=== PATIENT | male | born 1995 | race Caucasian/White ===

== ENCOUNTER 2017-04-22 10:50 | Emergency (ER) | payer OTHER ==
[2017-04-22 11:39] LABS: BASOPHIL 0.6 % (0-2); EOSINOPHIL 1.2 % (0-5); HCT 37.9 % (42.0-52.0); HGB 13.5 g/dl (13.2-18.0); LYMPHOCYTE 19.2 % (15-48); MCH 31.3 pg (25.0-31.0); MCHC 35.6 g/dL (32.0-36.0); MCV 87.7 fL (78.0-100.0); MONOCYTE 9.7 % (0-12); MPV 9.7 fL (6.0-9.5); NEUTROPHIL 69.3 % (41-80); PLT 229 K/uL (150-400); RBC 4.32 M/uL (4.70-6.00); RDW 12.6 % (11.5-14.0)
[2017-04-22 11:48] LABS: BILIRUBIN NEGATIVE (NEGATIVE); BLOOD NEGATIVE Ery/uL (NEGATIVE); CLARITY CLEAR (CLEAR); COLOR YELLOW (YELLOW); GLUCOSE (U) NORMAL (NORMAL); KETONE (U) NEGATIVE (NEGATIVE); LEUKOCYTES NEGATIVE Leu/uL (NEGATIVE); NITRITE NEGATIVE (NEGATIVE); PROTEIN NEGATIVE (NEGATIVE); SPECIFIC GRAVITY 1.025 (1.001-1.030); UROBILINOGEN 0.2 mg/dL (0.2-1.0)
[2017-04-22 12:00] LABS: ALBUMIN 4.5 g/dL (3.5-5.0); BILIRUBIN - TOTAL 0.9 mg/dL (0.1-1.0); CREATININE 0.8 mg/dL (0.7-1.2); GLOBULIN (CALCULATION) 2.8 g/dL (2.2-4.2); POTASSIUM 3.9 mmol/L (3.5-5.1); TOTAL PROTEIN 7.3 g/dL (6.4-8.3)
== END 2017-04-22 12:13 | disposition home or self-care (01) ==
LOC: FER 10:50
PROVIDERS: Emergency Medicine
DX: R11.2 Nausea with vomiting, unspecified (principal); R10.817 Generalized abdominal tenderness; F17.200 Nicotine dependence, unspecified, uncomplicated; Z86.59 Personal history of other mental and behavioral disorders
CPT/HCPCS: 36415; 80053; 81003; 82150; 83690; 85025; 99284

== ENCOUNTER 2017-05-05 01:39 | Emergency (ER) | payer OTHER ==
[2017-05-05 02:25] LABS: BASOPHIL 0.6 % (0-2); EOSINOPHIL 0.1 % (0-5); HCT 41.8 % (42.0-52.0); HGB 15.3 g/dl (13.2-18.0); LYMPHOCYTE 19.4 % (15-48); MCHC 36.6 g/dL (32.0-36.0); MCV 84.8 fL (78.0-100.0); MONOCYTE 5.1 % (0-12); NEUTROPHIL 74.8 % (41-80); PLT 291 K/uL (150-400); RBC 4.93 M/uL (4.70-6.00); RDW 12.6 % (11.5-14.0); WBC 8.6 K/uL (4.0-10.5)
[2017-05-05 02:33] LABS: ALBUMIN 4.7 g/dL (3.5-5.0); BILIRUBIN - TOTAL 0.7 mg/dL (0.1-1.0); CREATININE 0.7 mg/dL (0.7-1.2); GLOBULIN (CALCULATION) 3.3 g/dL (2.2-4.2); POTASSIUM 3.9 mmol/L (3.5-5.1)
[2017-05-05 03:22] LABS: BILIRUBIN NEGATIVE (NEGATIVE); BLOOD NEGATIVE Ery/uL (NEGATIVE); CLARITY CLEAR (CLEAR); COLOR YELLOW (YELLOW); GLUCOSE (U) NORMAL (NORMAL); KETONE (U) NEGATIVE (NEGATIVE); LEUKOCYTES NEGATIVE Leu/uL (NEGATIVE); NITRITE NEGATIVE (NEGATIVE); PROTEIN TRACE (LOW) mg/dL (NEGATIVE); UROBILINOGEN 0.2 mg/dL (0.2-1.0); pH 8.5 (5.0-9.0)
[2017-05-05 03:24] LABS: AMORPHOUS URATES CRYSTALS MODERATE
== END 2017-05-05 04:33 | disposition home or self-care (01) ==
LOC: FER 01:39
PROVIDERS: Emergency Medicine
DX: K29.70 Gastritis, unspecified, without bleeding (principal); F19.10 Other psychoactive substance abuse, uncomplicated; F41.0 Panic disorder [episodic paroxysmal anxiety]; K21.9 Gastro-esophageal reflux disease without esophagitis
CPT/HCPCS: 36415; 80053; 81001; 83690; 85025; C9113; J2405

== ENCOUNTER 2017-05-06 10:31 | Emergency (ER) | payer OTHER | END 2017-05-06 12:46 | disposition home or self-care (01) | LOC: FER 10:31 | DX: R10.9 Unspecified abdominal pain (principal); R11.0 Nausea; R19.7 Diarrhea, unspecified | CPT/HCPCS: 99283 ==

== ENCOUNTER 2021-07-06 10:09 | Emergency (ER) | payer OTHER ==
[~2021-07-06 10:09] MED LIST: FLEXERIL10 MG PO; NAPROXEN500 MG PO
[2021-07-21] MEDS ORDERED: BRIN20TA PO (15:16)
[2021-07-21] MEDS ORDERED: REXULTI4 MG PO (15:16)
[2021-07-21] MEDS ORDERED: MINIPRES1 MG PO (15:17)
[2021-07-21] MEDS ORDERED: IBUPROFEN400 MG PO (15:18)
== END 2021-07-06 11:20 | disposition home or self-care (01) ==
LOC: FER 10:09
DX: S09.90XA Unspecified injury of head, initial encounter (principal); K02.9 Dental caries, unspecified; F17.200 Nicotine dependence, unspecified, uncomplicated; Z88.5 Allergy status to narcotic agent; W19.XXXA Unspecified fall, initial encounter; W22.8XXA Striking against or struck by other objects, initial encounter; Y92.69 Other specified industrial and construction area as the place of occurrence of the external cause; Y99.0 Civilian activity done for income or pay
CPT/HCPCS: 99283

== ENCOUNTER 2021-07-12 10:37 | Emergency (ER) | payer OTHER ==
[2021-07-12 12:19] LABS: BASOPHIL 0.7 % (0-2); EOSINOPHIL 0.4 % (0-5); HCT 41.4 % (42.0-52.0); HGB 14.6 g/dl (13.2-18.0); MCH 32.6 pg (25.0-31.0); MCHC 35.3 g/dL (32.0-36.0); MCV 92.4 fL (78.0-100.0); MONOCYTE 8.7 % (0-12); MPV 9.7 fL (6.0-9.5); NEUTROPHIL 78.4 % (41-80); NRBC 0; PLT 273 K/uL (150-400); RBC 4.48 M/uL (4.70-6.00); RDW 12.5 % (11.5-14.0); WBC 12.1 K/uL (4.0-10.5)
[2021-07-12 12:46] LABS: ALBUMIN 4.3 g/dL (3.4-5.0); BILIRUBIN - TOTAL 0.9 mg/dL (0.2-1.0); BUN/CREAT RATIO (CALC) 13.2 RATIO; CREATININE 0.91 mg/dL (0.67-1.17); GLOBULIN (CALCULATION) 3.9 g/dL; POTASSIUM 3.5 mmol/L (3.5-5.1); TOTAL PROTEIN 8.2 g/dL (6.4-8.2)
[2021-07-12] MEDS ORDERED: ONDANSETRON ODT4 MG PO (14:56)
[2021-07-12] MEDS ORDERED: PEPCID AC20 MG PO (14:56)
[2021-07-21] MEDS ORDERED: REXULTI4 MG PO (15:16)
[2021-07-21] MEDS ORDERED: BRIN20TA PO (15:16)
[2021-07-21] MEDS ORDERED: MINIPRES1 MG PO (15:17)
[2021-07-21] MEDS ORDERED: IBUPROFEN400 MG PO (15:18)
== END 2021-07-12 15:02 | disposition home or self-care (01) ==
LOC: FER 10:37
PROVIDERS: Physician Assistant
DX: R11.2 Nausea with vomiting, unspecified (principal); R19.7 Diarrhea, unspecified; F17.210 Nicotine dependence, cigarettes, uncomplicated; Z88.5 Allergy status to narcotic agent
CPT/HCPCS: 36415; 80053; 83690; 85025; 86140; 96372; J2405; J2550; J7030; Q9967

== ENCOUNTER → 2021-07-29 | Day surgery (SDC) | payer OTHER ==
[~2021-07-29] VITALS: Ht 182.9 cm; Wt 86.2 kg
[~2021-07-29] MED LIST changes: +BRIN20TA PO; +IBUPROFEN400 MG PO; +MINIPRES1 MG PO; +ONDANSETRON ODT4 MG PO; +PEPCID AC20 MG PO; +REXULTI4 MG PO
[2021-07-29 09:09] LABS: BASOPHIL 0.6 % (0-2); EOSINOPHIL 3.1 % (0-5); HCT 40.1 % (42.0-52.0); HGB 13.7 g/dl (13.2-18.0); LYMPHOCYTE 20.5 % (15-48); MCH 32.2 pg (25.0-31.0); MCHC 34.2 g/dL (32.0-36.0); MCV 94.1 fL (78.0-100.0); MONOCYTE 9.5 % (0-12); MPV 9.7 fL (6.0-9.5); NRBC 0; PLT 206 K/uL (150-400); RBC 4.26 M/uL (4.70-6.00); RDW 12.6 % (11.5-14.0); WBC 8.8 K/uL (4.0-10.5)
== END | disposition home or self-care (01) ==
LOC: FAS 07:57
PROVIDERS: Oral & Maxillofacial Surgery
DX: K02.9 Dental caries, unspecified (principal); K04.7 Periapical abscess without sinus; F20.9 Schizophrenia, unspecified; F31.9 Bipolar disorder, unspecified; K21.9 Gastro-esophageal reflux disease without esophagitis; F17.200 Nicotine dependence, unspecified, uncomplicated; Z91.041 Radiographic dye allergy status; Z88.5 Allergy status to narcotic agent; Z79.899 Other long term (current) drug therapy
CPT/HCPCS: 36415; 85025; J1100; J1885; J2001; J2250; J2405; J2704; J2710; J3010; J7120